=== PATIENT | male | born 2000 | race Two or more races ===

== ENCOUNTER 2023-01-27 14:48 | Emergency (ER) | payer OTHER ==
[~2023-01-27] VITALS: Ht 177.8 cm; Wt 85.5 kg
[2023-01-27 19:42] VITALS: BP 126/80
== END 2023-01-27 19:42 | disposition home or self-care (01) ==
LOC: ED 14:48
DX: S61.411A Laceration without foreign body of right hand, initial encounter (principal); W26.8XXA Contact with other sharp object(s), not elsewhere classified, initial encounter
CPT/HCPCS: 12002; 99282 25